=== PATIENT | female | born 1940 | race Caucasian/White ===

== ENCOUNTER 2020-10-23 09:30 | Day surgery (SDC) | payer MEDICARE ==
[~2020-10-23] VITALS: Ht 170.2 cm; Wt 62.4 kg
[~2020-10-23 09:30] MED LIST: ASPI81TA45 PO; Areds PO; BUPIVACAINE/PF 0.5% ONE; CALC-42 PO; CHOL10003 PO; CYAN50003 PO; EPINEPHRINE 1 MG/ML, 1ML ONE; FISH1CAP PO; FLAX1CAP PO; GLUC15006 PO; LEVO25TA2 PO; MECL-101 PO; MULT-717 PO; SERT50TA28 PO; TETR15DR83 EACHEYE; THYR30TA4 PO; THYR60TA4 PO
[2020-10-23 09:54] VITALS: BP 136/78
[2020-10-23] MEDS ORDERED: LIDOCAINE-MPF 1%, 2ML INFIL ONE (10:00)
[2020-10-23] MEDS ORDERED: LACTATED RINGERS 1,000 ML IV SCH (10:00)
[2020-10-23] MEDS ORDERED: CHLORHEXIDINE 15 ML UDC PO ONE (10:00)
[2020-10-23] MEDS ORDERED: ONDANSETRON 2MG/ML, 2ML IVPush PRN (10:30)
[2020-10-23] MEDS ORDERED: morphine SULFATE 10 MG/ML, 1ML IVPush PRN (10:30)
[2020-10-23] MEDS ORDERED: HYDROmorphone 1 MG/ML, 1ML INJ IVPush PRN (10:30)
[2020-10-23] MEDS ORDERED: PROMETHAZINE 25 MG/ML, 1ML IVPush PRN (10:30)
[2020-10-23] MEDS ORDERED: OXYcodone 5 MG/5 ML ORAL.SOL UDC PO PRN (10:30)
[2020-10-23] MEDS ORDERED: FENTANYL PF 100 MCG/2ML IV PRN (10:30)
[2020-10-23] MEDS ORDERED: ACETAMINOPHEN 325 MG TABLET PO PRN (10:30)
[2020-10-23] MEDS ORDERED: hydrALAzine 20 MG/ML, 1ML IV PRN (10:30)
[2020-10-23] MEDS ORDERED: LABETALOL 5MG/ML, 20ML IV PRN (10:30)
[2020-10-23] MEDS ORDERED: FENTANYL PF 250 MCG/5ML ONE (11:03)
[2020-10-23] MEDS ORDERED: MIDAZOLAM 1 MG/ML, 2ML ONE (11:03)
[2020-10-23] MEDS ORDERED: PROPOFOL 10 MG/ML, 20ML ONE (12:41)
[2020-10-23] MEDS ORDERED: ONDANSETRON 2MG/ML, 2ML ONE (12:42)
[2020-10-23] MEDS ORDERED: DEXAMETHASONE 4 MG/ML, 1ML ONE (13:16)
[2020-10-23] MEDS ORDERED: CEFAZOLIN 1,000 MG ONE (13:24)
[2020-10-23] MEDS ORDERED: EPHEDRINE 50 MG/ML, 1ML ONE (13:28)
[2020-10-23] MEDS ORDERED: ONDA4TAB7 PO (14:08)
[2020-10-23] MEDS ORDERED: hydrALAzine 20 MG/ML, 1ML ONE (14:16)
== END 2020-10-23 16:40 | disposition home or self-care (01) ==
LOC: OUT 09:30
PROVIDERS: ATTEND Surgery
DX: N64.52 Nipple discharge (principal); N64.4 Mastodynia; N64.59 Other signs and symptoms in breast; J44.9 Chronic obstructive pulmonary disease, unspecified; F41.9 Anxiety disorder, unspecified; E03.9 Hypothyroidism, unspecified; E66.9 Obesity, unspecified; Z68.32 Body mass index [BMI] 32.0-32.9, adult; Z79.82 Long term (current) use of aspirin; Z79.899 Other long term (current) drug therapy; Z20.822 Contact with and (suspected) exposure to COVID-19
CPT/HCPCS: 19120; 88305; 93005; C1729; J0171; J0360; J0690; J1100; J2250; J2405; J2704; J3010; J7120; U0003; U0005